=== PATIENT | male | born 2005 | race Caucasian/White ===

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

== ENCOUNTER 2024-05-05 20:36 | Emergency (ER) | payer MEDICAID, SELFPAY ==
[2024-05-05 20:39] VITALS: BP 128/79; PULSE 94; TEMP 36.9; O2SAT 99
[2024-05-05 20:43] VITALS: O2SAT 99
--- NOTE | 2024-05-05 22:45 | W.ED.GENAD ---
Discharge Plan Disposition Patient Disposition: Home Condition: Stable Discharge Details Clinical Impression: Foreign body in cornea, left eye, initial encounter, Corneal rust ring of left eye Primary Care Provider: Melissa Kennedy ED Provider: Gini Grimes Discharge Instructions Instructions: Erythromycin (Into the eye), Eye Foreign Body (ED) Additional Instructions: Please follow-up with [facility] in the next 24 hours. Use the erythromycin ointment as directed. Try not to rub your eye. Stand Alone Forms: Work Release Referrals: [facility] [Outside] - 1 day (Call to be seen in 1-2 days. Report rust ring to office. ) Discharge Data Discharge Date/Time-TO BE ENTERED AT DEPARTURE: 05/05/24 23:11 HPI General Mode of arrival: ambulatory. Date/Time Provider Initiated Documentation: 05/05/24 20:53. Limitations to Documentation: no limitations. Information obtained by: patient, RN notes reviewed and old records reviewed. HPI Narrative: 18-year-old male presents to the ER with chief complaint of foreign body into his left eye times approximately 24 hours. He was grinding a piece of metal. He had been using saline flushes prior to arrival which were unsuccessful. Visual acuity was done by staff field engineer upon arrival of her. He does have a past medical history of ADHD, mononucleosis. No other concerns or associated symptoms at this time. He describes it as irritating, constant. Denies any eye pain headache or any other concerns. Related Data Allergies Allergy/AdvReac Type Severity Reaction Status Date / Time No Known Allergies Allergy Unverified 05/05/24 20:45 General Stated Complaint: EyeProblem INDRA: 4 Review of Systems All systems reviewed & are unremarkable except as noted in HPI and below Eyes Eyes: Reports as per HPI, Denies eye discharge, Reports irritation, Denies loss of vision and Reports other (Foreign body sensation left eye) Neurologic Neurologic: Denies loss of vision Exam Eyes General: appearance normal, both eyes and all related structures Alignment and Position: alignment normal and position normal Eyelids: eyelids normal Cornea: corneas abnormal on the left fluorescein used and foreign body metallic and with rust ring present; without abrasions and fluorescein used Pupils: PERRL and normal by confrontation EOM: EOM intact bilaterally Direct ophthalmoscopy: normal light reflex Eyes/upper lids images: 1. Small metal foreign body with rust ring Course Vital Signs Vital signs: Vital Signs Temperature 36.9 C 05/05/24 20:39 Pulse 94 H 05/05/24 20:39 Blood Pressure 128/79 05/05/24 20:39 Pulse Oximetry 99 05/05/24 20:39 Temperature 36.9 C 05/05/24 20:39 Pulse 94 H 05/05/24 20:39 Respiratory Effort Normal, Non-Labored 05/05/24 20:43 Blood Pressure 128/79 05/05/24 20:39 Blood Pressure Position Sitting 05/05/24 20:39 Pulse Oximetry 99 05/05/24 20:43 Oxygen Delivery Method Room Air 05/05/24 20:43 Oxygen Flow Rate 0 05/05/24 20:39 Medical Decision Making 18-year-old male presents to the ER with a chief complaint of male foreign body noted to left inner thigh since last night. Patient was grinding some metal when he had foreign body sensation to his left eye. He reports irritation. Denies any loss of vision or blurry vision. Visual acuity is noted. staff field engineer note. 20/15 on the left. Uncorrected. Denies headache or any other associated symptoms or concerns. Manual dislodgement of metal foreign body with needle and Q tip, foreign body removed. There is a small rust ring noted to area and some surrounding swelling. Will give erythromycin ointment and referral to [facility] to be seen in the Next 24 to 48 hours. This text was generated using [employer] dictation system, please disregard any oddities of phrase or misspellings. Quality:SDOH Health Related Social Needs: No Data to Display PFSH All Active Problems (Updated 05/05/24 @ 23:06 by Gnii Grimes NP) Corneal rust ring of left eye (Acute) Foreign body in cornea, left eye, initial encounter (Acute) Need for HPV vaccine (Acute) needs HPV #2 Medical History Mononucleosis (~01/2022) ADHD (attention deficit hyperactivity disorder) Hearing loss in left ear Surgical History Circumcision Family History Father Lung cancer 10/18 Mother Healthy adult on routine physical examination Social History Smoking/Tobacco Use Status: Never Smoking risk assessment performed?: Yes Alcohol Intake: never Substance use type: does not use Housing: house Do you feel safe at home: Yes Do you feel safe in your relationship?: Yes
[2024-05-05] MEDS: Erythromycin Ophth Oint 3.5 GM TUBE OP (23:11)
[2024-05-05] MEDS: Fluorescein STRIPS 100/BOX 1 MG (23:11)
--- NOTE | 2024-05-06 01:33 | NUR.NOTE ---
Pt placed n care management referral list to be seen by [facility] in 24hrs for rust ring in left eye per KELSEY PIPER
== END 2024-05-05 23:11 | disposition home or self-care (01) ==
PROVIDERS: Emergency Provider Registered Nurse Emergency; PCP Student in an Organized Health Care Education/Training Program
DX: H57.12 Ocular pain, left eye (principal); T15.02XA Foreign body in cornea, left eye, initial encounter; Y93.89 Activity, other specified; W26.8XXA Contact with other sharp object(s), not elsewhere classified, initial encounter; Z18.12 Retained nonmagnetic metal fragments
CPT/HCPCS: 65220

== ENCOUNTER 2025-10-11 11:52 | Outpatient (CLI) | payer SELFPAY ==
[2025-10-11 15:51] LABS: Abs Immature Grans 0.03 10^3/uL (0.0-0.06); HCT 44.1 % (40.0-50.0); HGB 15.1 g/dL (13.5-17.5); Immature Grans % 0.3 %; MCH 30.0 pg (27.0-33.0); MCHC 34.2 % (32.0-36.0); MCV 88 fL (80-95); MPV 11.1 fL (8.0-11.0); Platelet Count 232 10^3/uL (130-400); RBC 5.03 10^6/uL (4.36-5.78); RDW 12.0 % (11.8-14.1); RDW-SD 38.6 fL; WBC 10.20 10^3/uL (4.4-10.8)
[2025-10-11 16:04] LABS: ALT 36 U/L (16-63); AST 20 U/L (15-37); Albumin 4.7 g/dL (3.4-5.0); Alkaline Phosphatase 84 U/L (46-116); Anion Gap 12.2 mmol/L (3-11); BUN 13 mg/dL (7-18); Bilirubin, Total 1.8 mg/dL (0.2-1.0); CO2 25.8 mmol/L (21.0-32.0); Calcium 9.1 mg/dL (8.5-10.1); Chloride 104 mmol/L (98-107); Glucose 96 mg/dL (74-106); Potassium 3.5 mmol/L (3.5-5.1); Sodium 142 mmol/L (136-145); Total Protein 7.8 g/dL (6.4-8.2)
[2025-10-12 10:43] LABS: Lyme Ab w Rflx to Lyme Confirm Negative (Negative)
[2025-10-14 15:53] LABS: B. miyamotoi PCR Negative (Negative); Babesia divergens/MO-1 Negative (Negative); Ehrlichia muris eauclairensis Negative (Negative)
== END 2025-10-11 11:53 | disposition home or self-care (01) ==
LOC: LOS 11:53
PROVIDERS: Visit Provider Nurse Practitioner Family
DX: R53.83 Other fatigue (principal); T14.90XA Injury, unspecified, initial encounter
CPT/HCPCS: 36415; 80053; 87798; 85025; 86618